=== PATIENT | female | born 1980 | race Two or more races ===

== ENCOUNTER 2023-11-29 13:26 | Emergency (ER) | payer SELFPAY ==
[~2023-11-29] VITALS: Ht 172.7 cm; Wt 90.9 kg
[2023-11-29] MEDS: SODIUM CHLORIDE 0.9% 1,000 ML IV ONE ×2 (14:00)
[2023-11-29 16:26] LABS: Basophils # (auto) 0 10 ^3/uL (0-0.2); Basophils % (auto) 0.3 % (0.0-2.0); Eosinophils # (auto) 0 10 ^3/uL (0-0.8); Eosinophils % (auto) 0.1 % (0.0-7.0); Hematocrit 47.5 % (36.0-46.0); Hemoglobin 15.8 g/dL (12.2-16.2); Lymphocytes # (auto) 1.8 10 ^3/uL (0.4-5.4); Lymphocytes % (auto) 14.1 % (10.0-50.0); Mean Corpuscular Hemoglobin 32.3 pg (28.0-32.0); Mean Corpuscular Hgb Conc. 33.3 g/dL (32.0-36.0); Mean Corpuscular Volume 97.1 fL (80.0-100.0); Monocytes # (auto) 0.8 10 ^3/uL (0-1.3); Monocytes % (auto) 6.1 % (0.0-12.0); Neutrophils # (auto) 9.9 10 ^3/uL (1.6-8.6); Neutrophils % (auto) 79.4 % (37.0-80.0); Nucleated Red Blood Cells % 0.1 %; Platelet Count (auto) 367 10^3/uL (140-450); Red Cell Distribution Width 13.9 % (11.8-14.3); White Blood Cell 12.5 10^3/uL (4.4-10.8)
[2023-11-29 17:05] LABS: Chloride 111 mmol/L (98-107); Potassium 4.1 mmol/L (3.5-5.1); Sodium 140 mmol/L (136-145)
[2023-11-29 17:06] LABS: Anion Gap 9 (5-15); Calcium 9.9 mg/dL (8.7-10.4); Carbon Dioxide 20 mmol/L (20-30)
[2023-11-29 17:11] LABS: Blood Urea Nitrogen 11 mg/dL (9-23); Glucose 82 mg/dL (74-106)
[2023-11-29] MEDS: ONDANSETRON HCL 4 MG/2 ML VIAL IV ONE (21:08)
[2023-11-29] MEDS: HYDROmorphone HCL 2 MG/ML VL/or syr IV ONE (21:14)
[2023-11-30 00:29] VITALS: BP 118/78; PULSE 99; RESP 20; TEMP 98.3; O2SAT 99
== END 2023-11-30 00:30 | disposition home or self-care (01) ==
LOC: ER 13:26 → EDBD 13:26 → ER 11-30 00:30
DX: S93.401A Sprain of unspecified ligament of right ankle, initial encounter (principal); E86.0 Dehydration; F17.210 Nicotine dependence, cigarettes, uncomplicated; E11.9 Type 2 diabetes mellitus without complications; Z98.890 Other specified postprocedural states; Z88.8 Allergy status to other drugs, medicaments and biological substances; X58.XXXA Exposure to other specified factors, initial encounter; Y93.89 Activity, other specified; Y92.89 Other specified places as the place of occurrence of the external cause; Y99.8 Other external cause status
CPT/HCPCS: 36415; 73610; 80048; 85025; 96361; 96374; 96375; 99284; J1170; J2405; J7030